=== PATIENT | male | born 1985 | race Caucasian/White ===

== ENCOUNTER 2019-02-25 08:07 | Day surgery (SDC) | payer OTHER ==
[~2019-02-25] VITALS: Ht 188 cm; Wt 97.4 kg
[~2019-02-25 08:07] MED LIST: CIPR500 PO; CITA20 PO; HYDMOR2 PO; HYDMOR4 PO; HYOS.125 SL; KETO10 PO; MEDICAL MARIJUANA; METO25ER PO; ONDA4 PO; OXYACE7.5T PO; OXYB5 PO; PROM25 PO; Percocet 5-3251 EACH PO; RXHYDMOR2 PO; RXHYOS.125 PO; TRAACE PO; TRAM50 PO
--- NOTE | 2019-02-25 12:06 | NUR ---
02/25/19 1206 Sarita Jenkins PT IS IN THE RECLINER AT THIS TIME WITH LEGS ELEVATED. VSS OP LEG IS ON A PILLOW FOR COMFORT. POLAR UNIT IS ON AND RUNNING. PT CURRENTLY DENIES NAUSEA AND HAS TOLERATED PO FLUIDS AND CRACKERS WELL. PT HAS AT CHAIRSIDE. PT STATES HIS PAIN IS 8/10; RN TREATING PER ORDERS WITH IV PAIN MEDICATION AND ORAL PAIN MEDICATION. WARM BLANKETS SUPPLIED. CALL LIGHT IN REACH.
== END 2019-02-25 12:45 | disposition home or self-care (01) ==
LOC: ORSCSDS 08:07
PROVIDERS: Orthopaedic Surgery
PROC: 0SBD4ZZ Excision of Left Knee Joint, Percutaneous Endoscopic Approach (ICD-10-PCS; principal; 2019-02-25 09:15)
DX: S83.242A Other tear of medial meniscus, current injury, left knee, initial encounter (principal); M22.42 Chondromalacia patellae, left knee; M25.862 Other specified joint disorders, left knee; I10 Essential (primary) hypertension; Z87.891 Personal history of nicotine dependence
CPT/HCPCS: J0171; J0690; J1100; J1885; J2250; J2310; J2405; J2704; J2795; J3010; J7120

== ENCOUNTER 2019-03-01 15:09 | Emergency (ER) | payer OTHER ==
[~2019-03-01] VITALS: Ht 188 cm; Wt 95.2 kg
[2019-03-01] MEDS ORDERED: ONDA4ODT MM (16:02)
[2019-03-01] MEDS ORDERED: Percocet 5-3251 EACH PO ×2 (16:02→16:21)
[2019-03-01] MEDS ORDERED: METO10 PO (16:21)
== END 2019-03-01 16:28 | disposition home or self-care (01) ==
LOC: ER 15:09
DX: R11.2 Nausea with vomiting, unspecified (principal); Z76.0 Encounter for issue of repeat prescription; Z88.5 Allergy status to narcotic agent; Z88.6 Allergy status to analgesic agent; Z88.8 Allergy status to other drugs, medicaments and biological substances; Z87.442 Personal history of urinary calculi; Z87.891 Personal history of nicotine dependence; Z98.890 Other specified postprocedural states
CPT/HCPCS: 96372; 99283-25; J2765

== ENCOUNTER 2020-04-16 12:08 | Emergency (ER) | payer OTHER ==
[~2020-04-16] VITALS: Ht 188 cm; Wt 99.8 kg
[~2020-04-16 12:08] MED LIST changes: +METO10 PO; +ONDA4ODT MM
[2020-04-16] MEDS ORDERED: GLYC2 PO (13:17)
[2020-04-16] MEDS ORDERED: TRAZ150T57 PO (13:17)
[2020-04-16] MEDS ORDERED: EUTHYROX25 MC1 PO (13:17)
[2020-04-16] MEDS ORDERED: Paxil20 MG PO (13:17)
[2020-04-16] MEDS ORDERED: Percocet 5-3251 EACH PO (15:27)
== END 2020-04-16 15:39 | disposition home or self-care (01) ==
LOC: ER 12:08
DX: S51.811A Laceration without foreign body of right forearm, initial encounter (principal); M25.511 Pain in right shoulder; M25.531 Pain in right wrist; M25.521 Pain in right elbow; Z23 Encounter for immunization; Z88.5 Allergy status to narcotic agent; Z88.8 Allergy status to other drugs, medicaments and biological substances; Z79.899 Other long term (current) drug therapy; Z87.891 Personal history of nicotine dependence; W17.89XA Other fall from one level to another, initial encounter
CPT/HCPCS: 12034; 73030; 73090; 73110; 90471; 90714; 96372-59; 99283-25; J1885

== ENCOUNTER 2020-04-26 17:40 | Emergency (ER) | payer OTHER ==
[~2020-04-26] VITALS: Ht 188 cm; Wt 99.8 kg
[~2020-04-26 17:40] MED LIST changes: +EUTHYROX25 MC1 PO; +GLYC2 PO; +Paxil20 MG PO; +TRAZ150T57 PO
== END 2020-04-26 17:50 | disposition home or self-care (01) ==
LOC: ER 17:40
DX: S51.811D Laceration without foreign body of right forearm, subsequent encounter (principal); Z88.5 Allergy status to narcotic agent; Z88.6 Allergy status to analgesic agent; Z88.8 Allergy status to other drugs, medicaments and biological substances; Z79.899 Other long term (current) drug therapy; Z87.891 Personal history of nicotine dependence
CPT/HCPCS: 99281

== ENCOUNTER 2021-03-10 21:38 | Emergency (ER) | payer OTHER ==
[~2021-03-10] VITALS: Ht 188 cm; Wt 98.0 kg
[2021-03-11] MEDS ORDERED: AMOCLA875 PO (01:43)
== END 2021-03-11 02:09 | disposition home or self-care (01) ==
LOC: ER 21:38
DX: S61.452A Open bite of left hand, initial encounter (principal); Z88.5 Allergy status to narcotic agent; Z88.6 Allergy status to analgesic agent; Z87.891 Personal history of nicotine dependence; W54.0XXA Bitten by dog, initial encounter
CPT/HCPCS: 73120; 96365; 96372-59; 96375; 99283-25; A9270; J0690; J1170; J1885; J2405; J3010